=== PATIENT | male | born 1975 | race Caucasian/White ===

== ENCOUNTER 2022-03-08 08:52 | Emergency (ER) | payer OTHER, SELFPAY ==
--- NOTE | 2022-03-08 09:23 | HMH.EDUTC ---
[facility] Dis[place] Clinical Impression: Viral syndrome Pharyngitis Qualifiers: Pharyngitis/tonsillitis etiology: unspecified etiology Qualified Code(s): J02.9 - Acute pharyngitis, unspecified Disposition: Home, Self-Care Condition on Discharge: Good Instructions: DI for Pharyngitis/Tonsillopharyngitis -- Adult, DI for COVID-19 (Suspected or Confirmed ), Preventing the Spread of Coronavirus Discharge Instructions Additional Instructions: Drink plenty of fluids. Take tylenol or ibuprofen for pain or fever. Take the medications as directed. Follow up with your regular doctor. GO TO THE ER FOR ANY WORSENING SYMPTOMS Quarantine until you know the results of your covid-19 test. Notify your school or workplace of your results and follow their instructions regarding return to work/school. Don't start the oral steroids until tomorrow, since you had the shot here today. Prescriptions: methylPREDNISolone [Medrol] 4 mg PO DIRECTED 6 Days #21 packet Transmission Status: Received by [id number] Azithromycin [Z-Michel 250mg Tab*] 250 mg PO UD DOSE PK #6 tab Transmission Status: Received by [id number] Referrals: Provider,Referral, [Primary Care Provider] - Forms: Work/School Release Time of Disposition: 09:58 Medical Decision Making - Medical Records Medical records reviewed: No: I reviewed the patient's medical records. - Marlon Inquiry Pt receiving controlled substance: No Vital Signs: 03/08/22 09:31 03/08/22 10:32 Temperature 98.0 F 98.0 F Temperature Source Oral Pulse Rate 102 H Pulse Rate [Left] 102 H Respiratory Rate 16 16 Blood Pressure 124/90 Blood Pressure [Right Arm] 124/90 Blood Pressure Mean [Right Arm] 101 02 Sat by Pulse Oximetry 98 - Lab Data Lab results reviewed: Yes: I reviewed the patient's lab results. Lab Results 03/08/22 09:24: Chlamy pneumoniae PCR Not detected, Adenovirus (PCR) Not detected, B. pertussis DNA (PCR) Not detected, Coronavirus OC43 (PCR) Not detected, Coronavirus HKU1 (PCR) Not detected, Coronavirus 229E (PCR) Not detected, SARS-CoV-2 (PCR) Detected A, Coronavirus NL63 (PCR) Not detected, Human Metapneumovir PCR Not detected, Influenza A (H1) PCR Not detected, Influ A (H1N1/09) PCR Not detected, Influenza A (H3) PCR Not detected, Influenza Type A (PCR) Not detected, Influenza Type B (PCR) Not detected, M. pneumoniae (PCR) Not detected, Parainfluenza 1 (PCR) Not detected, Parainfluenza 2 (PCR) Not detected, Parainfluenza 3 (PCR) Not detected, Parainfluenza 4 (PCR) Not detected, RSV (PCR) Not detected, Entero/Rhino (PCR) Not detected 03/08/22 09:24: Group A Strep Rapid Negative Orders (Tests/Meds): ED MEDICATIONS Discontinued Medications Generic Name Dose Route Start Last Admin Trade Name Freq PRN Reason Stop Dose Admin Methylprednisolone Sodium Succinate 125 mg 03/08/22 09:51 03/08/22 10:05 Methylprednisolone Sod Succ 125mg Vial IM 03/08/22 09:52 125 mg ONCE ONE Administration ORDERS Category Date Time Status Strep Screen Confirmation Stat Micro 03/08/22 09:24 Received [facility] HPI - General Stated complaint: scratchy throat Time Seen by Provider: 03/08/22 09:40 - History of Present Illness Provider Complaint: He c/o sore throat, productive cough and feeling bad for the past 3 days. - Related Data Previous Rx's Medication Instructions Recorded Azithromycin [Z-Michel 250mg Tab*] 250 mg PO UD DOSE PK #6 tab 03/08/22 methylPREDNISolone [Medrol] 4 mg PO DIRECTED 6 Days #21 03/08/22 packet Allergies Allergy/AdvReac Type Severity Reaction Status Date / Time No Known Allergies Allergy Verified 03/08/22 09:33 [facility] History - Hepatitis A Screen Attestation statement:: This patient has been screened for Hepatitis A risk factors. I have reviewed the patient's past medical history: Yes ROS Obtained: Yes All systems reviewed & no additional complaints - [place]
[2022-03-08 09:31] VITALS: BP 124/90; PULSE 102; RESP 16; TEMP 36.7; O2SAT 98; BMI 28.0
[2022-03-08 09:39] LABS: Adenovirus,PCR Not Detected (NotDetected); Bordetella Pertussis Not Detected (NotDetected); Chlamydophila Pneumoniae, PCR Not Detected (NotDetected); Coronavirus 229E Not Detected (NotDetected); Coronavirus NL63 Not Detected (NotDetected); Coronavirus OC43 Not Detected (NotDetected); Coronovirus HKU1,PCR Not Detected (NotDetected); Human Metapneumovirus Not Detected (NotDetected); Influenza A, PCR Not Detected (NotDetected); Influenza AH1, 2009 Not Detected (NotDetected); Influenza AH1, PCR Not Detected (NotDetected); Influenza AH3,PCR Not Detected (NotDetected); Influenza B, PCR Not Detected (NotDetected); Mycoplasma Pneumoniae, PCR Not Detected (NotDetected); Parainfluenza 1, PCR Not Detected (NotDetected); Parainfluenza 2, PCR Not Detected (NotDetected); Parainfluenza 3, PCR Not Detected (NotDetected); Parainfluenza 4, PCR Not Detected (NotDetected); Respiratory Syncytial Virus Not Detected (NotDetected); Rhinovirus/Enterovirus Not Detected (NotDetected)
[2022-03-08 09:50] LABS: Strep Scrn Group A (Rapid) Negative (Negative)
[2022-03-08 10:32] VITALS: BP 124/90; PULSE 102; RESP 16; TEMP 36.7
[2022-03-08 14:21] LABS: Coronavirus 19, PCR Detected (NotDetected)
== END 2022-03-08 10:32 | disposition home or self-care (01) ==
PROVIDERS: Emergency Provider Nurse Practitioner Family
DX: U07.1 COVID-19 (principal); J02.9 Acute pharyngitis, unspecified
CPT/HCPCS: 87430; 87581; 87632; 87798; 96372; 99212; C9803; G0463; U0003; U0005